=== PATIENT | female | born 1940 | race Caucasian/White ===

== ENCOUNTER 2019-01-07 19:25 | Inpatient (IN) | payer OTHER ==
[2019-01-07 20:06] VITALS: BMI 25.7
--- NOTE | 2019-01-07 20:40 | HP ---
CIWA Score Nausea/Vomitin-No Nausea/No Vomiting Muscle Tremors: None Anxiety: 0-No Anxiety, at Ease Agitation: 0-Normal Activity Paroxysmal Sweats: No Perspiration Orientation: 1-Uncertain about Date Tacttile Disturbances: 0-None Auditory Disturbances: 0-None Visual Disturbances: 0-None Headache: 0-None Present CIWA-Ar Total Score: 1 - Admission Criteria OASAS Guidelines: Admission for Medically Managed Detox: Requires at least one of the followin. CIWA greater than 12 2. Seizures within the past 24 hours 3. Delirium tremens within the past 24 hours 4. Hallucinations within the past 24 hours 5. Acute intervention needed for co occurring medical disorder 6. Acute intervention needed for co occurring psychiatric disorder 7. Severe withdrawal that cannot be handled at a lower level of care (continued vomiting, continued diarrhea, abnormal vital signs) requiring intravenous medication and/or fluids 8. Admission ROS S - [facility] Chief Complaint: seeking detox services for binge drinking habit. Allergies/Adverse Reactions: Allergies Allergy/AdvReac Type Severity Reaction Status Date / Time No Known Allergies Allergy Verified 01/07/19 21:19 History of Present Illness: 78 y.o femlae with hx/o alcoholism here for detox. client was referred by her daughter and her neurologist due to her forgetfulness which they feel is alcohol induced and frequent falls. Patient reports this as her first time in substance abuse txment. Client daughter reports client binge drinks. Client states she binge drinks about 1 bottle of alcohol 1 to 2 times a week. The client present with forgetfulness and the daughter cannot provide much hx as she does not live with her. Daughter does report client has had frequent falls due to her intoxication. Client does report her last drink being 2 days ago and it was "just a glass of wine". She presents in nad. vss. ciwa 1. d/w client that she does not meet criteria for detox. Rehab services offered to which she and her daughter accepted. Again Client is a poor historian due to her loss of memory/ forgetfulness. Unable to determine if she ever had a period of sobriety. Her jen is 0 and utox if negative for illicit substance abuse. She currently lives alone, retired, denies legals. pmhx- polymalAgia rheumatica, htn, hx/o bilat breast cancer s/p radiation ( does not recall dates) psych- denies Exam Limitations: Physical Impairment (risk for falls. presently ambualting with steady gait), Dementia (poor historian very forgetful) - Ebola screening Have you traveled outside of the country in the last 21 days: No ([place]) Have you had contact with anyone from an Ebola affected area: No Have you been sick,other than usual withdrawal symptoms: No Do you have a fever: No - Review of Systems Constitutional: No Symptoms Reported EENT: reports: No Symptoms Reported Respiratory: reports: No Symptoms reported Cardiac: reports: No Symptoms Reported GI: reports: No Symptoms Reported : reports: No Symptoms Reported Musculoskeletal: reports: Neck Pain Integumentary: reports: No Symptoms Reported Neuro: reports: No Symptoms reported Endocrine: reports: No Symptoms Reported Hematology: reports: Easy Bruising Psychiatric: reports: Disorientated (pleasantly confused? dementia), other ( forgetful) Other Systems: Reviewed and Negative Patient History - Patient Medical History Hx Anemia: No Hx Asthma: No Hx Chronic Obstructive Pulmonary Disease (COPD): No Hx Cancer: Yes (bilat breast ca s/p radiation ) Hx Cardiac Disorders: No Hx Congestive Heart Failure: No Hx Hypertension: Yes Hx Hypercholesterolemia: No Hx Pacemaker: No HX Cerebrovascular Accident: No Hx Seizures: No Hx Dementia: Yes (?) Hx Diabetes: No Hx Gastrointestinal Disorders: No Hx Liver Disease: No Hx Genitourinary Disorders: No Hx Sexually Transmitted Disorders: No Hx Renal Disease (ESRD): No Hx Thyroid Disease: No Hx Human Immunodeficiency Virus (HIV): No Hx Hepatitis C: No Hx Depression: No Hx Suicide Attempt: No Hx Bipolar Disorder: No Hx Schizophrenia: No Other Medical History: denies - Patient Surgical History Past Surgical History: Yes Hx Breast Biopsy: Yes Hx Orthopedic Surgery: Yes (bilat knee replacement) Anesthesia Reaction: No - PPD History Previous Implant?: Yes Documented Results: Negative w/proof Implanted On Prior [facility] Admission?: No PPD to be Administered?: Yes - Reproductive History Patient is a Female of Child Bearing Age (11 -55 yrs old): No Patient : No (neg c) - Smoking Cessation Smoking history: Former smoker Have you smoked in the past 12 months: No Cigars Per Day: 0 Hx Chewing Tobacco Use: No Initiated information on smoking cessation: No - Substance & Tx. History Hx Alcohol Use: Yes Hx Substance Use: Yes Substance Use Type: Alcohol Hx Substance Use Treatment: No - Substances Abused wine Route: Oral Frequency: 3-6 times per week Amount used: 1 bottle Age of first use: 51 Date of Last Use: 01/05/19 (1 glass) Family Disease History - Family Disease History Family Disease History: Heart Disease: Father ([place]) Admission Physical Exam [facility] - Vital Signs Vital Signs: Vital Signs - 24 hr 01/07/19 20:03 Temperature 98.8 F Pulse Rate 96 H Respiratory 18 Rate Blood Pressure 150/73 - Physical General Appearance: Yes: No Apparent Distress, Appropriately Dressed HEENTM: Yes: EOMI, Normocephalic, Normal Voice, LEYLA, Pharynx Normal Respiratory: Yes: Chest Non-Tender, Lungs Clear, Normal Breath Sounds, No Respiratory Distress, No Accessory Muscle Use Neck: Yes: No masses,lesions,Nodules, Supple, Trachea in good position Breast: Yes: Breast Exam Deferred Cardiology: Yes: Regular Rhythm, Regular Rate, S1, S2 Abdominal: Yes: Normal Bowel Sounds, Non Tender, Soft Genitourinary: Yes: Other (NO C/O OFFERED) Back: Yes: Normal Inspection Musculoskeletal: Yes: Gait Steady Extremities: Yes: Normal Capillary Refill, Normal Inspection, Normal Range of Motion, Non-Tender Neurological: Yes: Alert, Motor Strength 5/5, Normal Mood/Affect, Other ( FORGETFUL ? DEMENTIA PROCESS) Integumentary: Yes: Normal Color, Dry, Warm Lymphatic: Yes: Within Normal Limits - Diagnostic (1) Uncomplicated alcohol dependence Current Visit: Yes Status: Chronic Comment: BINGE DRINING (2) HTN (hypertension) Current Visit: Yes Status: Chronic Qualifiers: Hypertension type: unspecified Qualified Code(s): I10 - Essential (primary ) hypertension (3) Forgetfulness Current Visit: Yes Status: Chronic (4) Falls frequently Current Visit: Yes Status: Chronic (5) Alcohol consumption binge drinking Current Visit: Yes Status: Chronic (6) H/O polymyalgia rheumatica Current Visit: No Status: Chronic (7) History of breast cancer Current Visit: No Status: Resolved (8) Former smoker, stopped smoking many years ago Current Visit: Yes Status: Chronic Cleared for Admission [facility] - Detox or Rehab Detox Regimen/Protocol: Not Applicable Claeared for Rehab Admission: Yes [facility] Breath Alcohol Content Breath Alcohol Content: 0 Urine Pregancy Test - Result Urine Test Results: Negative- NO Line Present Urine Drug Screen - Results Drug Screen Negative: Yes Inpatient Rehab Admission - Rehab Decision to Admit Inpatient rehab admission?: Yes - Initial Determination Are CD services needed?: Yes Free of communicable disease: Yes Not in need of hospitalization: Yes - Rehab Admission Criteria Previous failed treatment: No Poor recovery environment: Yes Comorbidities: Yes Lacks judgement: No Patient is meeting Inpatient Rehab admission criteria:: Yes
[2019-01-07] MEDS ORDERED: hydrOXYzine PAMOATE 50 MG CAPSULE (FP) PO PRN (21:09)
[2019-01-07] MEDS ORDERED: P-EPHED 60MG/TRIPROLIDI 2.5MG TABLET PO PRN (21:09)
[2019-01-07] MEDS ORDERED: MAGNESIUM HYDROX 2400MG/30ML ORAL SUSPENSION 30 ML CUP PO PRN (21:09)
[2019-01-07] MEDS ORDERED: ACETAMINOPHEN 325 MG TABLET (FP) PO PRN (21:09)
[2019-01-07] MEDS ORDERED: MENTHOL/PHENOL 1 EACH UD MM PRN (21:09)
[2019-01-07] MEDS ORDERED: guaiFENesin/D-METHORPHAN HB 10 ML UNIT-DOSE CUPS PO PRN (21:09)
[2019-01-07] MEDS ORDERED: MAG HYDROX/AL HYDROX/SIMETH 30 ML UNIT-DOSE CUP PO PRN (21:09)
[2019-01-07] MEDS ORDERED: MAGNESIUM CITRATE 300 ML BOTTLE PO PRN (21:09)
[2019-01-07] MEDS ORDERED: LOPERAMIDE HCL 2 MG CAPSULE PO PRN (21:09)
[2019-01-07] MEDS ORDERED: TUBERCULIN PPD 5 TU/0.1ML VIAL ID ONE (23:24)
[2019-01-07] MEDS: THIAMINE HCL 100 MG TABLET (FP) PO SCH (23:26)
[2019-01-08 00:05] LABS: URINE APPEARANCE SLCLOUDY; URINE BILIRUBIN NEGATIVE (<2.0 mg/dL); URINE COLOR LTYELLOW; URINE GLUCOSE (UA) NEGATIVE (NEGATIVE); URINE KETONE NEGATIVE (NEGATIVE); URINE LEUK ESTERASE 3+ (NEGATIVE); URINE NITRITE NEGATIVE (NEGATIVE); URINE PROTEIN NEGATIVE (NEGATIVE); URINE UROBILINOGEN NEGATIVE mg/dL (0.2-1.0)
[2019-01-08 00:37] LABS: EPI CELLS FEW /HPF (FEW); URINE BACTERIA MODERATE /hpf (NONE SEEN); URINE HYALINE CAST 1 /lpf; URINE MUCUS RARE; YEAST RARE
[2019-01-08] MEDS: VALSARTAN 160 MG TABLET (UD) PO SCH (10:12)
[2019-01-08] MEDS: PRENATAL VITAMINS W/ FOLIC ACID TABLET (FP) PO SCH (10:12)
[2019-01-08] MEDS: HYDROCHLOROTHIAZIDE 12.5 MG CAPSULE (FP) PO SCH (10:12)
[2019-01-08] MEDS: PANTOPRAZOLE 40 MG TABLET (FP) PO SCH (10:12)
[2019-01-08 10:44] LABS: HEMATOCRIT 36.4 % (32.4-45.2); HEMOGLOBIN 11.9 GM/dL (10.7-15.3); MCH 29.5 pg (25.7-33.7); MCHC 32.7 g/dl (32.0-36.0); MEAN CELL VOLUME 90.4 fl (80-96); MEAN PLT VOLUME 9.6 fl (7.5-11.1); PLATELET COUNT 208 K/MM3 (134-434); RBC 4.03 M/mm3 (3.60-5.2); WHITE BLOOD COUNT 4.6 K/mm3 (4.0-10.0)
[2019-01-08 10:58] LABS: ALBUMIN 3.8 g/dl (3.4-5.0); ALK PHOS 106 U/L (45-117); ANION GAP 9 MMOL/L (8-16); BILIRUBIN,TOTAL 0.8 mg/dL (0.2-1); BLOOD UREA NITROGEN 20 mg/dL (7-18); CALCIUM 9.3 mg/dL (8.5-10.1); CHLORIDE 104 mmol/L (98-107); CO2 25 mmol/L (21-32); CREATININE 0.8 mg/dL (0.55-1.3); GLUCOSE,RANDOM 114 mg/dL (74-106); POTASSIUM 3.8 mmol/L (3.5-5.1); SGOT/AST 21 U/L (15-37); SGPT/ALT 23 U/L (13-61); SODIUM 138 mmol/L (136-145); TOT PROT 7.2 g/dl (6.4-8.2)
[2019-01-08] MEDS: IBUPROFEN 400 MG TABLET (FP) PO PRN (11:00)
[2019-01-08] MEDS ORDERED: PT OWN MED DRAWER 7, Y5N ONE (19:33)
[2019-01-08] MEDS: ROSUVASTATIN CA 20 MG TABLET (FP) PO SCH (22:33)
[2019-01-08] MEDS: THIAMINE HCL 100 MG TABLET (FP) PO SCH (22:35)
[2019-01-09] MEDS ORDERED: PT OWN MED DRAWER 7, Y5N ONE (09:14)
[2019-01-09] MEDS: VALSARTAN 160 MG TABLET (UD) PO SCH (10:06)
[2019-01-09] MEDS: PRENATAL VITAMINS W/ FOLIC ACID TABLET (FP) PO SCH (10:06)
[2019-01-09] MEDS: HYDROCHLOROTHIAZIDE 12.5 MG CAPSULE (FP) PO SCH (10:07)
[2019-01-09] MEDS: PANTOPRAZOLE 40 MG TABLET (FP) PO SCH (10:07)
--- NOTE | 2019-01-09 18:49 | CONSULT ---
[facility] Psychiatric Consult - Data Date of interview: 01/09/19 Admission source: [facility] Identifying data: First admission to [facility] for this 78 y/o female brought by relatives for detoxification treatment (alcohol). Did not meet criteria for admission to detox. Instead, the patient consented to enter rehabilitation at [address] With the agreement of the accompanying relative. 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 Substance Abuse History: Discussed with patient in this session. Ms Vega seems inclined to minimize the magnitude of her ETOH habit. " I use a little wine once in a while ". True details of her habit is described in this segment of current [facility] report as follows : Smoking Cessation. Smoking history: Former smoker. Have you smoked in the past 12 months: No. Cigars Per Day: 0. Hx Chewing Tobacco Use: No. Initiated information on smoking cessation : No. - Substance & Tx. History. Hx Alcohol Use: Yes. Hx Substance Use: Yes. Substance Use Type: Alcohol. Hx Substance Use Treatment: No. - Substances Abused. wine. Route: Oral. Frequency: 3-6 times per week. Amount used: 1 bottle. Age of first use: 51. Date of Last Use: 01/05/19 (1 glass) Medical History: Remarkable for hypertension, polymyalgia rheumatica, antecedent of bilateral knee replacement and history of radiation therapy for bilateral breast cancer. Psychiatric History: Patient denies history of psychiatric hospitalizations, mental illness or prior exposure to psychiatric OPD care. Psychotropics-naive. Ms Vega denies history of suicide attempts. Physical/Sexual Abuse/Trauma History: No reported history of abuse. Additional Comment: Drug Screen is negative. Mental Status Exam - Mental Status Exam Alert and Oriented to: Person Cognitive Function: Impaired (disoriented to time : believes date to be 1994 ; no recollection of how she got here or when ; upon prompting, the patient remembers that she is in a rehab facility somewhere) Patient Appearance: Well Groomed (appearing her stated age, neatly attired, appropriate) Mood: Anxious (moderately anxious) Affect: Appropriate, Normal Range Patient Behavior: Appropriate (soft spoken, well-mannered), Cooperative Speech Pattern: Clear, Appropriate (articulate, coherent ) Voice Loudness: Normal Thought Process: Goal Oriented (able to follow redirections), Disoriented ( about her surroundings) Thought Disorder: Not Present Hallucinations: Denies Suicidal Ideation: Denies Homicidal Ideation: Denies Insight/Judgement: Impaired Sleep: Fair Appetite: Fair (ate her meals) Gait/Station: Normal Psychiatric Findings - Problem List (Girdler 1, 2,3) (1) At risk for elopement Current Visit: Yes Status: Acute (2) Alcohol dependence Current Visit: Yes Status: Chronic (3) Alcohol-induced cognitive dysfunction Current Visit: Yes Status: Suspected (4) Memory changes Current Visit: Yes Status: Chronic - Initial Treatment Plan Initial Treatment Plan: Patient has approached staff earlier with request to leave the facility. Ms Vega is exhibiting signs of disorientation, memory impairment, poor judgment and she cannot possibly be trusted for safety. Clearly at risk of elopement or falls (established by a history of frequent falls at home). Constant observation (1:1) is initiated. Falls precautions. Support and reassurance provided to the patient. Reorientation to the unit. Calendar to be given to the patient. Psychoeducation : briefing on the dangers of alcohol abuse. Strategies for relapse prevention will be discussed with the patient during hospital course. AA meetings. Individual, group therapy. Daughter Alyssa Temple was reached by telephone by the workers' compensation claims supervisor on duty. In the meantime, Ms Vega has withdrawn her request for discharge. Anyhow , this patient SHOULD NOT be allowed to leave AMA. She should remain under 1:1 observation for the remainder of the week-end. Daytime coverage psychiatrist will re-evaluate the patient in the morning (Friday). Discussed with nurse on duty. Case is also revisited, via telephone, with the on-call medical attending , Dr Gant. Patient's daughter and sister in-law MUST BE KEPT INVOLVED in this patient's disposition. Ms Vega cannot be discharged, AMA or otherwise, without the safety of the custody of a close relative. Discussed with nurse and workers' compensation claims supervisor.
--- NOTE | 2019-01-09 19:05 | PN ---
[facility] Progress Note Note: called by nurse stated patient do not want to continue treatment i am concern about the elopement risk and cognitive impairment and the safety of the patient Psychiatric consultation ordered discussed with ,who will evaluate patient
[2019-01-09] MEDS: THIAMINE HCL 100 MG TABLET (FP) PO SCH (21:52)
[2019-01-09] MEDS: ROSUVASTATIN CA 20 MG TABLET (FP) PO SCH (21:52)
[2019-01-09] MEDS: MELATONIN 5 MG TABLETS PO PRN (21:53)
[2019-01-10] MEDS: PANTOPRAZOLE 40 MG TABLET (FP) PO SCH (09:58)
[2019-01-10] MEDS: HYDROCHLOROTHIAZIDE 12.5 MG CAPSULE (FP) PO SCH (09:58)
[2019-01-10] MEDS: VALSARTAN 160 MG TABLET (UD) PO SCH (09:58)
[2019-01-10] MEDS: PRENATAL VITAMINS W/ FOLIC ACID TABLET (FP) PO SCH (09:58)
[2019-01-10] MEDS: IBUPROFEN 400 MG TABLET (FP) PO PRN (09:59)
[2019-01-10] MEDS: THIAMINE HCL 100 MG TABLET (FP) PO SCH (21:51)
[2019-01-10] MEDS: ROSUVASTATIN CA 20 MG TABLET (FP) PO SCH (21:51)
[2019-01-10] MEDS: MELATONIN 5 MG TABLETS PO PRN (21:52)
[2019-01-11] MEDS ORDERED: PT OWN MED DRAWER 7, Y5N ONE ×2 (08:41→19:39)
[2019-01-11] MEDS: HYDROCHLOROTHIAZIDE 12.5 MG CAPSULE (FP) PO SCH (09:55)
[2019-01-11] MEDS: PRENATAL VITAMINS W/ FOLIC ACID TABLET (FP) PO SCH (09:55)
[2019-01-11] MEDS: VALSARTAN 160 MG TABLET (UD) PO SCH (09:55)
[2019-01-11] MEDS: PANTOPRAZOLE 40 MG TABLET (FP) PO SCH (09:55)
--- NOTE | 2019-01-11 13:14 | PN ---
Psychiatric Progress Note Vital Signs: Vital Signs Period Temp Pulse Resp BP Sys/Graves Pulse Ox Last 24 Hr 97.8 F 80-87 18-18 137-145/73-79 Date of Session: 01/11/19 Chief Complaint:: " I spoke to my daughter. I agree to stay in treatment ". HPI: Day 4 of rehabilitation. Patient is re-evaluated for assessment of mental status. Ms Vega was seen two days ago in response to a sudden request for discharge. The patient was noted, at the time, as disoriented to space + time, unpredictable and deprived of good judgment. As a safety measure, constant observation (1:1) was initiated. Patient is addressing alcohol use disorder. No history of psychiatric issues except for discernable memory deficits. ROS: Unremarkable. Patient is well-groomed, pleasant, cooperative and well- related. Coherent and goal-directed. Ambulatory. Steady gait. No somatic complaints offered. Current Medications: Active Medications Generic Name Dose Route Start Last Admin Trade Name Freq PRN Reason Stop Dose Admin Acetaminophen 650 mg 01/07/19 21:09 Tylenol - PO Q4H PRN FEVER Al Hydroxide/Mg Hydroxide 30 ml 01/07/19 21:09 Mylanta Oral Suspension - PO Q6H PRN DYSPEPSIA Eucalyptus/Menthol/Phenol/Sorbitol 1 each 01/07/19 21:09 Cepastat Lozenge - MM Q4H PRN SORE THROAT Guaifenesin 10 ml 01/07/19 21:09 Robitussin Dm - PO Q6H PRN COUGH Hydrochlorothiazide 12.5 mg 01/08/19 10:00 01/11/19 09:55 Hctz - PO 12.5 mg DAILY LESLEE Administration Hydroxyzine Pamoate 50 mg 01/07/19 21:09 Vistaril - PO Q4H PRN AGITATION Ibuprofen 400 mg 01/07/19 21:09 01/10/19 09:59 Motrin - PO 400 mg Q6H PRN Administration Pain level 4-6 Loperamide HCl 4 mg 01/07/19 21:09 Imodium - PO Q6H PRN DIARRHEA Magnesium Citrate 300 ml 01/07/19 21:09 Citroma - PO Q48H PRN CONSTIPATION Magnesium Hydroxide 30 ml 01/07/19 21:09 Milk Of Magnesia - PO DAILY PRN CONSTIPATION Melatonin 5 mg 01/07/19 22:00 01/10/19 21:52 Melatonin PO 5 mg HS PRN Administration INSOMNIA Pantoprazole Sodium 40 mg 01/08/19 10:00 01/11/19 09:55 Protonix - PO 40 mg DAILY LESLEE Administration Multivit/Folic Acid/Iron 1 tab 01/08/19 10:00 01/11/19 09:55 Vitamins ([facility]) - PO 1 tab DAILY LESLEE Administration Pseudoephedrine/Triprolidine 1 combo 01/07/19 21:09 Actifed - PO TID PRN NASAL CONGESTION Rosuvastatin Calcium 20 mg 01/08/19 22:00 01/10/19 21:51 Crestor - PO 20 mg HS LESLEE Administration Thiamine HCl 100 mg 01/07/19 22:00 01/10/19 21:51 Vitamin B1 - PO 100 mg HS LESLEE Administration Valsartan 320 mg 01/08/19 10:00 01/11/19 09:55 Diovan - PO 320 mg DAILY LESLEE Administration Medication(s) Change(s): No psychotropic medications are added to the regimen. Current Side Effect: No Lab tests ordered: No Lab tests reviewed: Yes Provider note:: Chart reviewed. Labs revisited. Patient is interviewed at bedside in the presence of a certified nursing assistant. Ms Vega opens the encounter with polite, appropriate greetings and does recognize this account underwriter as " the doctor who spoke to me a couple of nights ago ". Is found resting calmy in bed, book in hand, reading a novel. Neatly groomed. Patient reports that she ate + slept well. Has praises for her former roommate (left today). " She was so kind. She treated me well. Made me feel as if I were her grandmother. I will miss her company ". Mood is euthymic with bright affect. Patient communicates coherently and relevantly. No evidence of a thought disorder. Patient denies suicidal or homicidal ideation, intent or plan. " I am happier and more relaxed since I spoke to my daughter on the phone. She encourages me to stay in treatment and I will. I need help. Let me hope that I will not have to stay here for too long. I missed my home, you know ". Ms Vega is reassured. She is informed that her social services manager will provide her with information about the projected length of stay. She aknowledges her memory lapses and concludes that " for the most part, I can take proper care of myself even if I get disoriented or forgetful at times ". Admits to having a loving + supportive family and friends. Mental status is stable at time of this examination. Patient is NOT a danger to self or others. She responded positively to the expression of support from her daughter and unit staff. She is willing to complete her rehabilitation schedule. She no longer requires constant observation. Falls precautions are still in place. One to one : discontinued. Downgraded to close observation. Nursing staff is made aware of this intervention. Case discussed today, in detail, with social services manager. Psychiatry will follow on request. Total face to face time:: 35 Mental Status Exam - Mental Status Exam Alert and Oriented to: Place, Person Cognitive Function: Fair Patient Appearance: Well Groomed Mood: Happy, Euthymic Affect: Appropriate, Normal Range Patient Behavior: Appropriate, Cooperative Speech Pattern: Clear, Appropriate Voice Loudness: Normal Thought Process: Intact, Goal Oriented Thought Disorder: Not Present Hallucinations: Denies Suicidal Ideation: Denies Homicidal Ideation: Denies Insight/Judgement: Fair Sleep: Well Appetite: Good Gait/Station: Normal Psychiatric Treatment Plan - Problem List (1) Alcohol dependence Current Visit: Yes (2) Memory changes Current Visit: Yes
[2019-01-11] MEDS: MELATONIN 5 MG TABLETS PO PRN (21:14)
[2019-01-11] MEDS: THIAMINE HCL 100 MG TABLET (FP) PO SCH (21:14)
[2019-01-11] MEDS: ROSUVASTATIN CA 20 MG TABLET (FP) PO SCH (21:15)
[2019-01-12 06:52] VITALS: TEMP 97.7
[2019-01-12 09:18] VITALS: BP 157/77; PULSE 79
--- NOTE | 2019-01-12 10:28 | PN ---
[facility] Progress Note Note: SAW PT THIS MORNING WHO WAS READY FOR DISCHARGE. ALERT O X3. OOB AMBULATING WITH STEADY GAIT. REPORTS HIS SON IS WAITING FOR HER OUTSIDE. MILL TENDER WARM UP WAS INFORMED BY SLOT ROUTER, MS FLORIN BRICE THAT PT IS DISCHARGING TODAY AND REFERRED TO [facility] FOR RECOVERY FOR CONTINUATION OF CARE. PT REPORTS SHE HAS A PCP DR. HALEY VIDES ON [address] AT [place], [place]. PT REPORTS SHE HAS ALL HER MEDICATIONS AT HOME AND HAS NO NEED FOR COURT[facility] RX. DENIES S/H/I. Vital Signs 01/12/19 01/12/19 06:51 09:17 Temperature 97.7 F Pulse Rate 73 79 Respiratory 16 18 Rate Blood Pressure 154/72 157/77 Laboratory Tests 01/07/19 01/08/19 01/08/19 23:05 08:00 08:00 WBC 4.6 RBC 4.03 Hgb 11.9 Hct 36.4 MCV 90.4 MCH 29.5 MCHC 32.7 RDW 15.0 Plt Count 208 MPV 9.6 Sodium 138 Potassium 3.8 Chloride 104 Carbon Dioxide 25 Anion Gap 9 BUN 20 H Creatinine 0.8 Creat Clearance w eGFR > 60 Random Glucose 114 H Calcium 9.3 Total Bilirubin 0.8 AST 21 ALT 23 Alkaline Phosphatase 106 Total Protein 7.2 Albumin 3.8 Urine Color Ltyellow Urine Appearance Slcloudy Urine pH 5.0 Ur Specific [place] 1.010 Urine Protein Negative Urine Glucose (UA) Negative Urine Ketones Negative Urine Blood Negative Urine Nitrite Negative Urine Bilirubin Negative Urine Urobilinogen Negative Ur Leukocyte Esterase 3+ H Urine WBC (Auto) 20 Urine RBC (Auto) 6 Ur Epithelial Cells Few Urine Bacteria Moderate Hyaline Casts 1 Urine Mucus Rare Urine Yeast Rare RPR Titer 01/08/19 08:00 WBC RBC Hgb Hct MCV MCH MCHC RDW Plt Count MPV Sodium Potassium Chloride Carbon Dioxide Anion Gap BUN Creatinine Creat Clearance w eGFR Random Glucose Calcium Total Bilirubin AST ALT Alkaline Phosphatase Total Protein Albumin Urine Color Urine Appearance Urine pH Ur Specific [place] Urine Protein Urine Glucose (UA) Urine Ketones Urine Blood Urine Nitrite Urine Bilirubin Urine Urobilinogen Ur Leukocyte Esterase Urine WBC (Auto) Urine RBC (Auto) Ur Epithelial Cells Urine Bacteria Hyaline Casts Urine Mucus Urine Yeast RPR Titer Nonreactive NAD MEDICALLY STABLE PLAN:FOLLOW UP WITH CD AFTERCARE RECOMMENDED ABOVE. FOLLOW UP WITH YOUR PCP DR. HALEY VIDES AT [place], [place].
== END 2019-01-12 09:00 | disposition home or self-care (01) | DRG 895 ==
LOC: YASAS 19:25 → Y3E 21:33
PROVIDERS: ADMIT Surgery; ATTEND Surgery
PROC: HZ42ZZZ Group Counseling for Substance Abuse Treatment, Cognitive-Behavioral (ICD-10-PCS; principal; 2019-01-07)
DX: F10.20 Alcohol dependence, uncomplicated (principal); F10.288 Alcohol dependence with other alcohol-induced disorder; R41.3 Other amnesia; Z91.89 Other specified personal risk factors, not elsewhere classified
CPT/HCPCS: 36415; 80053; 81003; 81015; 85027; 86593